=== PATIENT | male | born 1960 ===

== ENCOUNTER → 2020-03-19 08:54 | Outpatient (CLI) | payer OTHER, SELFPAY ==
[2020-03-20 20:14] LABS: COVID19 Sendout Not Detected (Not Detect)
== END ==
PROVIDERS: PCP Internal Medicine; Visit Provider Physician Assistant
DX: Z11.59 Encounter for screening for other viral diseases (principal)
CPT/HCPCS: 87635

== ENCOUNTER 2020-03-22 07:29 | Day surgery (SDC) | payer OTHER, SELFPAY ==
[2020-03-22] VITALS (8 sets, daily range): BP systolic 99–124; BP diastolic 67–80; PULSE 65–83; RESP 14–18; TEMP 36.2–37; O2SAT 97–99; BMI 24.3
--- NOTE | 2020-03-22 | PATH_ITS ---
[facility] Accession Number: [id number] . 01 Material submitted: . PART A: colon - CECAL POLYP PART B: colon - ASCENDING COLON POLYP PART C: colon - SIGMOID POLYP . 01 Clinical history: . SDC . 02 Diagnosis: A. Cecum, Polyp: Tubular adenoma. . B. Ascending Colon, Polyp: Tubular adenoma. . C. Sigmid Colon, Polyp: Tubular adenoma. MRV 03/27/2020 1050 Local . 02 Electronically signed: . Frank Hall MD, PhD, Pathologist NPI- [id number] . 01 Gross description: . A. Received in formalin, labeled cecal polyp, and consists of four vitale fragments of soft tissue measuring 1.0 x 0.8 x 0.2 cm in aggregate. The specimen is entirely submitted in cassette A1. B. Received in formalin, labeled polyp ascending colon, and consists of three vitale-pink fragments of soft tissue measuring 0.5 x 0.4 x 0.2 cm in aggregate. The specimen is entirely submitted in cassette B1. C. Received in formalin, labeled sigmoid polyp, and consists of two vitale-pink fragments of soft tissue measuring 1.0 x 0.8 x 0.3 cm in aggregate. The specimen is entirely submitted in cassette C1. ([id number]) /MRV 03/23/2020 1551 Local . 02 Pathologist provided ICD-10: D12.0, D12.2, D12.5 . 02 CPT . 390839, 504693, [id number] Performed at: [address] [facility], [place], [place] [id number] MD José Miguel Loya MD Phone: [phone] Performed at: [address] [place] [id number] [place] [id number] MD Mena Morrison MD Phone: [phone]
--- NOTE | 2020-03-22 08:10 | P.HP_ITS ---
History of Present Illness History of Present Illness Date Patient Seen: 03/22/20 Time Patient Seen: 08:10 Chief complaint: SDC Narrative: Patient is a 60 year old male who presented for colonoscopy. Remote history of diverticulitis. Last colonoscopy 2015. No GI complaints Patient History Medical History Acute diverticulitis (Acute) Appendicitis (Acute) Tibia fracture (Acute) Family & Social History Social History: household members spouse Tobacco & Substance use: Smoking Status Never smoker alcohol intake current alcohol intake frequency a few times a week Substance Use Type does not use Meds Home Medications and Allergies Home Medications Medication Instructions Recorded Confirmed Type atorvastatin 80 mg PO BEDTIME 03/22/20 03/22/20 History dutasteride 0.5 mg PO DAILY 03/22/20 03/22/20 History hydrochlorothiazide 12.5 mg PO DAILY 03/22/20 03/22/20 History lisinopril 5 mg PO DAILY 03/22/20 03/22/20 History multivitamin [Multiple Vitamins] 1 tab PO DAILY 03/22/20 03/22/20 History tamsulosin 0.4 mg PO DAILY 03/22/20 03/22/20 History Allergies Allergy/AdvReac Type Severity Reaction Status Date / Time No Known Drug Allergies Allergy Verified 03/22/20 07:38 Review of Systems Review of Systems ROS: Yes All systems reviewed with the patient and are negative except as otherwise documented Exam Vital Signs (past 8 hours): - 03/22/20 07:56 Temperature 98.1 F Pulse Rate 78 Respiratory Rate 15 Blood Pressure 124/80 Pulse Oximetry 99 Oxygen Delivery Method Room Air Const General: cooperative, healthy appearing, comfortable, well developed and well groomed Orientation: alert and awake [facility] Head: normocephalic and atraumatic Neck Neck: normal visual inspection Resp Effort & Inspection: normal respiratory effort, able to speak in complete sentences and abnormal respiratory pattern Auscultation: clear to auscultation bilaterally Cardio Rate: regular rate Rhythm: regular rhythm Heart Sounds: S1 normal and S2 normal GI Inspection: non-distended Palpation: soft Auscultation: normal bowel sounds Neuro General: patient alert, patient awake and patient oriented x3 Assessment & Plan Assessment & Plan narrative: 1. Screening colonoscopy - Colonoscopy today, further recommendations to follow
[2020-03-22] MEDS: MIDAZOLAM 5 MG/5 ML VIAL IV (08:28)
[2020-03-22] MEDS: fentaNYL 250 MCG/5 ML INJ IV (08:28)
--- NOTE | 2020-03-22 09:31 | P.OP.ENDO_ITS ---
Operative Date/Time/Diagnoses Date of procedure: 03/22/20 Time of procedure: 08:28 Procedure Notes Procedure in detail: Surgeon: Josseline Pierre DO Procedure: Colonoscopy with polypectomy Preoperative diagnosis: 1. History of colon polyps 2. Diverticulosis Postoperative diagnosis: 1. 7 mm cecal polyp 2. 5 mm ascending colon polyp 3. 7 mm sigmoid polyp 4. Scattered diverticulosis throughout the entire colon 5. Grade 1 internal hemorrhoids Medications: Conscious sedation using 4 mg IV of Midazolam and 125 mcg IV of Fentanyl Preanesthesia Assessment An H and P was performed/updated and the Px?s ASA class is 2. The procedure was discussed in detail with the patient. The potential risks and complications including infection, bleeding, missed lesions, perforation, need for surgery in case of perforation, prolonged hospital stay, and were explained. A brief question and answer period was allotted and once all questions were answered, informed consent was obtained. The patient was brought back to the procedure room and placed on standard monitoring. The patient?s vital signs were monitored continuously throughout the entire procedure. Prior to starting, a timeout was performed to confirm the patient?s identity, allergies, medications, and procedure. Procedure in detail The patient was placed in left lateral decubitus position and once adequate sedation was obtained a EDILBERTO was performed. The digital rectal examination did n ot reveal any palpable lesions. The tip of the colonoscope was placed in the anal canal and advanced without difficulty all the way to the cecum which was identified by the appendiceal orifice and the ileocecal valve. Careful examination of all torers of the colon was performed with irrigation of any residual stool. Second pass evaluation of the ascending colon was completed. 7 mm cecal polyp -removed with cold snare 5 mm ascending colon polyp -removed with cold snare 7 mm sigmoid polyp -removed with cold snare Scattered diverticulosis throughout the entire colon. With greatest concentration in the sigmoid colon Grade 1 internal hemorrhoids were noted on retroflexion The patient tolerated the procedure well and will be brought back to the recovery area to be discharged once criteria are met. The prep was judged to be good/excellent and adequate to identify polyps less than 5 mm. The withdrawal time was 9 minutes. The total physician intraservice time was 20 minutes. Complications There were no complications and estimated blood loss was minimal. Recommendations: Resume previous diet -high-fiber diet Continue outPx medications Follow up pathology results Repeat colonoscopy after pathology results are reviewed An emergency contact number was given to the patient for any complications related to the procedure
== END 2020-03-22 09:49 | disposition home or self-care (01) ==
PROVIDERS: PCP Internal Medicine; Referring Provider Student in an Organized Health Care Education/Training Program; Visit Provider Student in an Organized Health Care Education/Training Program
PROC: 0DJD8ZZ Inspection of Lower Intestinal Tract, Via Natural or Artificial Opening Endoscopic (ICD-10-PCS; CPT 45378; principal; 2020-03-22 08:30)
DX: K57.30 Diverticulosis of large intestine without perforation or abscess without bleeding (principal); K64.0 First degree hemorrhoids; D12.0 Benign neoplasm of cecum; D12.2 Benign neoplasm of ascending colon; D12.5 Benign neoplasm of sigmoid colon; Z86.010 Personal history of colon polyps; Z12.11 Encounter for screening for malignant neoplasm of colon
CPT/HCPCS: 45385; J2250; J3010

== ENCOUNTER 2023-07-02 12:59 | Day surgery (SDC) | payer OTHER, SELFPAY ==
[2023-07-02 13:52] VITALS: BP 127/76; PULSE 77; RESP 19; TEMP 36.3; O2SAT 98
[2023-07-02] MEDS: LACTATED RINGERS 1,000 ML 42 ML IV (13:56)
--- NOTE | 2023-07-02 14:02 | PM.HP.1 ---
History of Present Illness History of Present Illness Date Patient Seen: 07/02/23 Chief complaint: Colonoscopy Narrative: History of colon polyps on a 3 year recall [facility] Medical History Appendicitis Acute diverticulitis Tibia fracture Social History household members: spouse Smoking Status: Never smoker alcohol intake: current Meds Home Medications and Allergies Home Medications Medication Instructions Recorded Confirmed Type dutasteride 0.5 mg capsule 0.5 mg PO DAILY 03/22/20 07/02/23 History lisinopril 5 mg tablet 5 mg PO DAILY 03/22/20 07/02/23 History multivitamin (Multiple Vitamins 1 tab PO DAILY 03/22/20 03/22/20 History tablet) tamsulosin 0.4 mg capsule 0.4 mg PO DAILY 03/22/20 07/02/23 History rosuvastatin 10 mg tablet 10 mg PO ONCE PM 07/02/23 07/02/23 History Allergies Allergy/AdvReac Type Severity Reaction Status Date / Time No Known Drug Allergies Allergy Verified 07/02/23 13:27 Exam Vital Signs (past 8 hours): - 07/02/23 13:52 Temperature 97.3 F L Pulse Rate 77 Respiratory Rate 19 Blood Pressure 127/76 Pulse Oximetry 98 Oxygen Delivery Method Room Air Oxygen Delivery Method Room Air Narrative Exam Narrative: Oropharynx free of lesions Chest clear to auscultation percussion Cardiac exam reveals no S3 or murmur Assessment & Plan Assessment & Plan narrative: History of colon polyps need for follow-up colonoscopy. Risks benefits and alternatives have been explained.
--- NOTE | 2023-07-02 14:03 | PM.OP.COLON ---
Operative Date/Time/Diagnoses Date of procedure: 07/02/23 Pre-op diagnosis: See indication and findings Procedure & Clinicians Study performed: Colonoscopy Indications: History of colon polyps Surgeon: Cris Mooney Procedure Notes Procedure in detail: After informed consent was obtained the patient placed in left lateral decubitus position. The video colonoscope was introduced the rectum and slowly advanced to the cecum. Preparation was good. On slow withdrawal mucosa was carefully examined. The scope was removed. The patient tolerated procedure well. Blood loss none Complications none Sedation mac Findings 1. Sigmoid and left-sided diverticulosis 2. Otherwise negative colonoscopy to cecum Patient need follow-up colonoscopy in 7 years
[2023-07-02 14:32] VITALS: BP 98/73; PULSE 82; RESP 13; TEMP 37; O2SAT 96
[2023-07-02 14:38] VITALS: BP 108/72; PULSE 80; RESP 13; TEMP 36.9; O2SAT 96
[2023-07-02 14:42] VITALS: BP 111/70; PULSE 72; RESP 15; O2SAT 99
[2023-07-02 14:47] VITALS: BP 115/74; PULSE 71; RESP 15; O2SAT 98
== END 2023-07-02 14:54 | disposition home or self-care (01) ==
PROVIDERS: PCP Nurse Practitioner Family; Referring Provider Internal Medicine Gastroenterology; Visit Provider Internal Medicine Gastroenterology
PROC: 0DJD8ZZ Inspection of Lower Intestinal Tract, Via Natural or Artificial Opening Endoscopic (ICD-10-PCS; CPT 45378; principal; 2023-07-02 14:00)
DX: Z12.11 Encounter for screening for malignant neoplasm of colon (principal); Z86.010 Personal history of colon polyps; K57.30 Diverticulosis of large intestine without perforation or abscess without bleeding
CPT/HCPCS: 45378; J2704